=== PATIENT | female | born 1965 | race Caucasian/White ===

== ENCOUNTER → 2020-03-09 | Outpatient (CLI) | payer BC ==
[~2020-03-09] MED LIST: Bactrim Ds Tab1 EACH PO; CEPH500 PO; FERR325 PO; FERSU250ER PO; IBUP400 PO; LISI5 PO
[2020-03-11 15:10] LABS: HPV 16 Negative (Negative); HPV 18 Negative (Negative); HPV OTHER HR TYPES Negative (Negative)
== END | disposition home or self-care (01) ==
LOC: LAB SHORT 16:16 → LAB 16:16
PROVIDERS: Obstetrics & Gynecology
DX: N89.8 Other specified noninflammatory disorders of vagina (principal)
CPT/HCPCS: 87624; 88142

== ENCOUNTER → 2023-12-09 | Outpatient (CLI) | payer BC ==
[2023-12-09 17:54] LABS: BASOPHILS ABSOLUTE AUTO 0.05 K/mm3 (0.00-0.23); BASOPHILS PERCENT AUTO 1 % (0-2); EOSINOPHILS ABSOLUTE AUTO 0.13 K/mm3 (0.00-0.68); EOSINOPHILS PERCENT AUTO 2 % (0-6); Hemoglobin 13.4 g/dL (11.5-16.0); IMMATURE GRAN ABSOLUTE AUTO 0.03 K/mm3 (0.00-0.10); IMMATURE GRAN PERCENT AUTO 0 % (0-1); LYMPHOCYTES ABSOLUTE AUTO 2.09 K/mm3 (0.84-5.20); LYMPHOCYTES PERCENT AUTO 23 % (21-46); MONOCYTES ABSOLUTE AUTO 0.58 K/mm3 (0.16-1.47); MONOCYTES PERCENT AUTO 7 % (4-13); Mean Corpuscular HGB 30.1 pg (26.0-34.0); Mean Corpuscular HGB Conc 34.4 g/dL (31.5-36.5); Mean Corpuscular Volume 88 fL (80-100); Mean Platelet Volume 9.3 fL (9.1-12.4); NEUTROPHILS ABSOLUTE AUTO 6.08 K/mm3 (1.96-9.15); NEUTROPHILS PERCENT AUTO 68 % (41-73); Platelet Count 288 K/mm3 (150-400); RDW Coefficient Variation 13.2 % (11.7-14.2); RDW Standard Deviation 41.8 fL (35.1-46.3); Red Blood Cell Count 4.45 M/mm3 (3.80-5.20); White Blood Cell Count 8.96 K/mm3 (4.00-11.30)
[2023-12-09 18:14] LABS: Albumin, Blood 4.2 g/dL (3.4-5.0); Albumin/Globulin Ratio 1.1 (0.8-1.8); Bilirubin, Total 0.3 mg/dL (0.1-1.0); Bun/Creatinine Ratio 19.1 (12.0-20.0); Creatinine, Blood 1.36 mg/dL (0.40-1.00); Globulin, Blood 3.8 g/dL (2.2-4.0); Potassium, Blood 3.4 mmol/L (3.5-5.5); Thyroid Stimulating Hormone 0.946 uIU/mL (0.360-4.800)
== END | disposition home or self-care (01) ==
LOC: LAB 17:49 → LAB SHORT 17:49
PROVIDERS: Physician Assistant
DX: N39.0 Urinary tract infection, site not specified (principal); R07.9 Chest pain, unspecified; R53.83 Other fatigue
CPT/HCPCS: 80053; 84443; 84484; 85025; 87077; 87086; 87186

== ENCOUNTER 2024-06-01 06:09 | Day surgery (SDC) | payer OTHER, BC ==
[~2024-06-01] VITALS: Ht 162.6 cm; Wt 93.2 kg
[~2024-06-01 06:09] MED LIST changes: +Lactated Ringer's 1,000 ML IV ONE
[2024-06-01] MEDS ORDERED: CeFAZolin Sodium 2,000 MG VIAL ONE (06:32)
[2024-06-01] MEDS ORDERED: NS 50 ML IV ONE (06:32)
[2024-06-01] MEDS ORDERED: ADALAT CC30 M1 (06:41)
[2024-06-01] MEDS ORDERED: Dexmedetomidine HCL 200 MCG / 2 ML ONE (06:49)
[2024-06-01] MEDS ORDERED: Dexamethasone Sod Phos 10 MG/ML 1ML VIAL ONE (06:50)
[2024-06-01] MEDS ORDERED: Ondansetron HCl 2 MG / ML 2ML Vial ONE (06:50)
[2024-06-01] MEDS ORDERED: propofoL 20 ML IV ONE (06:50)
[2024-06-01] MEDS ORDERED: Midazolam HCl 1MG / ML 2ML Vial ONE (06:50)
[2024-06-01] MEDS ORDERED: FentaNYL Citrate 50 MCG/ML 2 ML Injection ONE (06:50)
[2024-06-01] MEDS ORDERED: Ketorolac Tromethamine 30mg Vial ONE (06:51)
[2024-06-01] MEDS ORDERED: Lidocaine 1%-Epineph 1:100000 20 ML MDV ONE (06:51)
[2024-06-01] MEDS ORDERED: Bupivacaine 0.5% HCl 5 MG/ML 30MLVIAL ONE (06:51)
[2024-06-01] MEDS ORDERED: Lactated Ringer's 1,000 ML IV ONE ×2 (06:51→07:55)
[2024-06-01] MEDS ORDERED: Tranexamic Acid 100 ML IV ONE (06:54)
[2024-06-01] MEDS ORDERED: ENTRESTO 49 MG1 EACH PO (07:01)
[2024-06-01] MEDS ORDERED: Lidocaine 2%-Epineph 1:100000 20 ML MDV ONE (07:08)
[2024-06-01] MEDS ORDERED: Lidocaine HCl 2% 10 ML SDA ONE (07:08)
--- NOTE | 2024-06-01 07:27 | NUR ---
06/01/24 0727 Erick Miranda, BLOCK TIMEOUT 0716 BLOCK STARTED 07 BLOCK FINISHED 722
[2024-06-01 08:59] VITALS: BP 115/81
--- NOTE | 2024-06-01 09:50 | NUR ---
06/01/24 0950 NIKKY LEDBETTER PT UP TO BR PRIOR TO DC. PT AND FATHER IN DURING DC INSTRUCTIONS. PT VERY PLEASANT. SLING ON.
== END 2024-06-01 09:50 | disposition home or self-care (01) ==
LOC: ORSCSDS 06:09 → ORSCMMR 07:30 → ORSCSDS 09:50 → ORD 11:00 → ORSCMMR 11:00 → ORSCSDS 11:00
PROVIDERS: Orthopaedic Surgery
PROC: 0LQ40ZZ Repair Left Upper Arm Tendon, Open Approach (ICD-10-PCS; principal; 2024-06-01 07:30)
DX: S46.212A Strain of muscle, fascia and tendon of other parts of biceps, left arm, initial encounter (principal); I10 Essential (primary) hypertension; E66.9 Obesity, unspecified; Z68.35 Body mass index [BMI] 35.0-35.9, adult; Z79.899 Other long term (current) drug therapy
CPT/HCPCS: C1713; J0690; J1100; J1885; J2001; J2250; J2405; J2704; J3010; J7120

== ENCOUNTER 2024-08-06 11:33 | Day surgery (SDC) | payer BC ==
[~2024-08-06] VITALS: Ht 162.6 cm; Wt 92.4 kg
[~2024-08-06 11:33] MED LIST changes: +ADALAT CC30 M1; +ENTRESTO 49 MG1 EACH PO
[2024-08-06] MEDS ORDERED: CefOXitin 2000 mg Vial ONE (11:41)
[2024-08-06] MEDS ORDERED: Lactated Ringer's 1,000 ML IV ONE ×2 (12:15→13:28)
[2024-08-06] MEDS ORDERED: propofoL 20 ML IV ONE (12:49)
[2024-08-06] MEDS ORDERED: FentaNYL Citrate 50 MCG/ML 2 ML Injection ONE ×3 (12:50→14:37)
[2024-08-06] MEDS ORDERED: Sugammadex Sodium 200 MG/2ML SDV (100 MG/ML) ONE (13:12)
[2024-08-06] MEDS ORDERED: Rocuronium Bromide 10 MG/ML 5ML Injection IV ONE ×2 (13:17→13:19)
[2024-08-06] MEDS ORDERED: Dexamethasone Sod Phos 10 MG/ML 1ML VIAL ONE (13:17)
[2024-08-06] MEDS ORDERED: Ondansetron HCl 2 MG / ML 2ML Vial ONE (13:17)
[2024-08-06] MEDS ORDERED: Bupivacaine 0.5% HCl 5 MG/ML 30MLVIAL INJ ONE (13:27)
--- NOTE | 2024-08-06 13:48 | NUR ---
08/06/24 1348 Yeimy Marquez 5ML OF ISOVUE 300 USED FOR CHOLANGIOGRAM BY DR GARCES.
[2024-08-06 15:00] VITALS: BP 159/87
--- NOTE | 2024-08-06 15:52 | NUR ---
08/06/24 1552 Mandeep Goncalves PT INSTRUCTED TO MONITOR B/P AT HOME, AND FOLLOW UP WITH PCP IF NEEDED.
== END 2024-08-06 15:58 | disposition home or self-care (01) ==
LOC: ORSCSDS 11:33
PROVIDERS: Surgery
PROC: BF031ZZ Plain Radiography of Gallbladder and Bile Ducts using Low Osmolar Contrast (ICD-10-PCS; principal; 2024-08-06 13:00)
PROC: 0FT44ZZ Resection of Gallbladder, Percutaneous Endoscopic Approach (ICD-10-PCS; principal; 2024-08-06 13:00)
PROC: 8E0W4CZ Robotic Assisted Procedure of Trunk Region, Percutaneous Endoscopic Approach (ICD-10-PCS; principal; 2024-08-06 13:00)
DX: K80.10 Calculus of gallbladder with chronic cholecystitis without obstruction (principal); I10 Essential (primary) hypertension; K21.9 Gastro-esophageal reflux disease without esophagitis; E66.9 Obesity, unspecified; Z68.34 Body mass index [BMI] 34.0-34.9, adult; Z79.899 Other long term (current) drug therapy
CPT/HCPCS: 74300; 88304; J0694; J1100; J2405; J2704; J3010; J7120